=== PATIENT | male | born 1980 | race Two or more races ===

== ENCOUNTER 2023-02-03 07:12 | Inpatient (IN) | payer MEDICAID ==
[~2023-02-03] VITALS: Ht 182.9 cm; Wt 131.1 kg
[2023-02-03 07:15] VITALS: BP 96/60
--- NOTE | 2023-02-03 07:15 | NUR ---
TO BED VIA W/C
[2023-02-03] MEDS ORDERED: NACL 0.9% 2,000 ML IV SCH (07:25)
[2023-02-03] MEDS ORDERED: ONDANSETRON 4 MG/2 ML VIAL IVP ONE (07:25)
[2023-02-03] MEDS ORDERED: fentaNYL citrate 0.05 MG/ML VIAL IVP ONE (07:25)
--- NOTE | 2023-02-03 07:45 | NUR ---
42/M BIB self from home c/o RLQ x 3 days. Patient A&Ox4, ambulatory, reports acute onset RLQ pain 3 days ago; reports 10, stretching/constant, non-radiating pain. With nausea, vomiting >10 episodes yesterday. Worsens after meals. Denies fever, chills, diarrhea, constipation, chest pain, urinary symptoms. RLQ tenderness to palp. night monitor in place. Bed locked in lowest position, side rails x 1. PMH/Sx/Meds: cholecystectomy NKDA
--- NOTE | 2023-02-03 07:50 | NUR ---
Blood sample collected, handed to CPT at ER bedside
--- NOTE | 2023-02-03 08:06 | NUR ---
Patient transported to CT via W/C.
--- NOTE | 2023-02-03 08:18 | NUR ---
Pt returned from CT via W/C; placed back onto residential monitor. IVF continued. Bed locked in lowest position, side rails x 1.
--- NOTE | 2023-02-03 08:31 | NUR ---
Patient unable to void at this time. Pain 7/10. whizzer operator remains in place. HR 116; SpO2 96% R/A; RR 28.
[2023-02-03 08:36] LABS: BASOPHILS % (AUTO) 0.1 % (0.0-2.0); HEMATOCRIT 44.5 % (36-52); HEMOGLOBIN 14.8 g/dL (12.0-18.0); LYMPHOCYTES # (AUTO) 1.9 K/uL (2.0-11.5); LYMPHOCYTES % (AUTO) 10.7 % (20.5-51.1); MEAN CORPUSCULAR HEMOGLOBIN 27 pg (27-31); MEAN CORPUSCULAR HGB CONC 33 g/dL (33-37); MONOCYTES # (AUTO) 1.1 K/uL (0.8-1.0); MONOCYTES % (AUTO) 6.5 % (1.7-9.3); NEUTROPHILS # (AUTO) 14.6 K/uL (1.8-7.7); NEUTROPHILS % (AUTO) 82.7 % (42.2-75.2); PLATELET COUNT (AUTO) 344 K/uL (140-450); RED BLOOD CELL COUNT(AUTO) 5.49 MIL/uL (4.20-6.10); RED CELL DISTRIBUTION WIDTH 15.2 % (11.6-13.7); WHITE BLOOD COUNT (AUTO) 17.7 K/uL (4.8-10.8)
[2023-02-03] MEDS ORDERED: PIPERACILLIN/TAZOBACTAM 4.5 GM in DEXTROSE 5% 100 ML IV ONE (08:40)
[2023-02-03] MEDS ORDERED: MORPHINE SULFATE 4 MG/ML SYR IVP ONE (08:40)
[2023-02-03] MEDS ORDERED: PIPERACILLIN/TAZOBACTAM 4.5 GM VIAL IV ONE (08:44)
[2023-02-03 09:06] LABS: ALBUMIN 3.5 g/dL (3.4-5.0); ANION GAP 11.8 (8-16); ASPARTATE AMINOTRANSFERASE 18 U/L (15-37); CARBON DIOXIDE 30.6 mmol/L (21-32); CHLORIDE 97 mmol/L (98-107); CREATININE 1.3 mg/dL (0.6-1.3); GFR ARICAN-AMERICAN 79 mL/min (>90); GLUCOSE 184 mg/dL (74-106); LIPASE 77 U/L (73-393); POTASSIUM 3.4 mmol/L (3.5-5.1); SODIUM SERUM 136 mmol/L (136-145); TOTAL BILIRUBIN 1.1 mg/dL (0.0-1.0); UREA NITROGEN, BLOOD 11 mg/dL (7-18)
--- NOTE | 2023-02-03 09:06 | NUR ---
Pt states minor relief to pain; 7/10 at this time. groundwater monitoring technician in place. HR 100 RR 27 SpO2 95% on room air. Bed locked in lowest position, side rails x 1.
--- NOTE | 2023-02-03 09:06 | NUR ---
SHANE benton walked to lab, handed to CPT. Log book completed.
--- NOTE | 2023-02-03 10:00 | NUR ---
Spoke with Betsy (sister); status update given regarding pending admission.
[2023-02-03] MEDS ORDERED: DOCUSATE SODIUM 100 MG GELCAP PO PRN (11:30)
[2023-02-03] MEDS ORDERED: ONDANSETRON 4 MG/2 ML VIAL IVP PRN (11:30)
[2023-02-03] MEDS ORDERED: MAG SULF 2000 MG/WATER PREMIX 50 ML IV PRN (11:30)
[2023-02-03] MEDS ORDERED: MORPHINE SULFATE 2 MG/ML SYR IVP PRN (11:30)
[2023-02-03] MEDS ORDERED: ACETAMINOPHEN 325 MG TAB PO PRN (11:30)
[2023-02-03] MEDS ORDERED: POTASSIUM CHLORIDE 10 MEQ TABER PO PRN (11:30)
[2023-02-03] MEDS ORDERED: ZOLPIDEM 10 MG TAB PO PRN (11:30)
[2023-02-03] MEDS ORDERED: LORazepam 2 MG/ML VIAL IVP PRN (11:30)
[2023-02-03] MEDS: PIPERACILLIN/TAZOBACTAM 3.375 GM in DEXTROSE 5% 50 ML IV SCH ×3 (12:00→23:45)
[2023-02-03] MEDS ORDERED: KCL 20 MEQ IN 100 mL PREMIX 100 ML IV SCH (12:00)
[2023-02-03 12:22] LABS: APPEARANCE,URINE CLEAR (CLEAR); BILIRUBIN,URINE NEGATIVE (NEGATIVE); BLOOD, URINE NEGATIVE (NEGATIVE); COLOR,URINE YELLOW (YELLOW); LEUKOCYTE ESTERASE ,URINE NEGATIVE (NEGATIVE); NITRITE, URINE NEGATIVE (NEGATIVE); UGLUCOSE NEGATIVE (NEGATIVE)
[2023-02-03 12:28] LABS: RBC,URINE 0-5 /HPF (0-5)
[2023-02-03] MEDS: DEXT 5% /NACL 0.9% 1,000 ML IV SCH ×2 (12:30→20:35)
[2023-02-03 12:34] LABS: CANNABINOID, URINE POSITIVE ng/mL (NEG <=50)
[2023-02-03 12:35] LABS: BARBITURATE, URINE NEGATIVE ng/ml (NEG <=200); BENZODIAZEPINE, URINE NEGATIVE ng/mL (NEG <=200); COCAINE, URINE NEGATIVE ng/mL (NEG <=300); OPIATE, URINE POSITIVE ng/mL (NEG <=2000); PHENCYCLIDINE SCREEN,URINE NEGATIVE ng/mL (NEG <=25)
--- NOTE | 2023-02-03 12:42 | NUR ---
Note aileen in ED - 02/03/23 at [address] Mccabe, to order PT/INR, aPTT and echocardiogram (reason: hx meth abuse).
--- NOTE | 2023-02-03 12:43 | NUR ---
Per Dr. Mccabe, to order PT/PTT and echocardiogram (reason: hx meth abuse).
--- NOTE | 2023-02-03 12:54 | NUR ---
Patient resting in high-fowlers position with cardiac specialist in place. Pain 6/10 with nausea. Advised patient PRN orders too close from previous dose; pt verbalized understanding. All needs met.
[2023-02-03 13:43] LABS: PROTHROMBIN TIME 10.9 secs (10.8-13.4)
--- NOTE | 2023-02-03 14:14 | NUR ---
Spoke with FINISHER WALLBOARD AND PLASTERBOARD Catherine who states will seed cone picker at 2:30PM.
--- NOTE | 2023-02-03 14:15 | NUR ---
Patient reports 5/10 RLQ pain requesting medication. silk snapper in place. PRN pain medication to be given. Bed locked in lowest position, side rails x 1.
--- NOTE | 2023-02-03 14:18 | NUR ---
pump house technician at bedside.
[2023-02-03] MEDS ORDERED: BUPIVACAINE-MPF/EPI 0.25% 30 ML VIAL INJ ONE (14:28)
--- NOTE | 2023-02-03 14:48 | NUR ---
Patient states + relief to pain; 3/10 at this time.
[2023-02-03] MEDS ORDERED: PROPOFOL 200 MG/20 ML VIAL IV ONE ×3 (15:00→18:21)
[2023-02-03] MEDS ORDERED: SUGAMMADEX SODIUM 200 MG/2 ML VIAL IV ONE ×2 (15:00→16:44)
[2023-02-03] MEDS ORDERED: ONDANSETRON 4 MG/2 ML VIAL ONE ×2 (15:00→16:47)
[2023-02-03] MEDS ORDERED: ROCURONIUM 50 MG/5 ML VIAL IV ONE ×4 (15:00→17:37)
[2023-02-03] MEDS ORDERED: SUCCINYLCHOLINE CHLORIDE 200 MG/10 ML VIAL IVP ONE (15:00)
[2023-02-03] MEDS ORDERED: ETOMIDATE 20 MG/10 ML VIAL IVP ONE ×2 (15:00→16:16)
[2023-02-03] MEDS ORDERED: SEVOFLURANE 250 ML BTL INH ONE (15:00)
[2023-02-03] MEDS ORDERED: fentaNYL citrate 0.05 MG/ML - 50mL vial IV ONE (15:00)
--- NOTE | 2023-02-03 15:08 | NUR ---
Dr. Mccabe reevaluating patient at bedside; verbal order received for STAT Cardiology Clearance. Reverified verbal order with .
--- NOTE | 2023-02-03 15:10 | NUR ---
Dr. Hope notified regarding cardiology clearance. Dr. Hope states given ~3:00PM procedure time and states will not be able to see pt before surgery; requesting echocardiogram to be uploaded to be viewed/cleared remotely. Charge nurse notified to contact echo.
--- NOTE | 2023-02-03 15:14 | NUR ---
Charge nurse to call lead technician to upload echocardiogram for Dr. Hope per request for cardiology clearance. Dr. Mccabe speaking with Dr. Hope via telephone at this time.
--- NOTE | 2023-02-03 15:21 | NUR ---
OR team at bedside for transport. Off floor [id number].
--- NOTE | 2023-02-03 15:21 | NUR ---
Patient will be admitted to care of Dr. Finley. Admited to M/S. Will go to OR. Room pending. Belongings list completed. Report to THOMAS Parikh.
[2023-02-03] MEDS ORDERED: fentaNYL citrate 0.05 MG/ML VIAL ONE ×2 (16:04→17:11)
[2023-02-03] MEDS ORDERED: KETOROLAC 30 MG/ML VIAL ONE (16:47)
[2023-02-03] MEDS ORDERED: HYDROmorphone 1 MG/ML AMP IVP PRN ×2 (18:25→18:30)
[2023-02-03] MEDS ORDERED: hydrALAZINE 20 MG/ML VIAL IVP PRN (18:29)
[2023-02-03] MEDS ORDERED: LABETALOL 20 MG/4 ML VIAL IVP PRN (18:29)
[2023-02-03] MEDS ORDERED: METOCLOPRAMIDE 10 MG/2 ML INJ VIAL IVP PRN (18:29)
[2023-02-03] MEDS ORDERED: LACTATED RINGERS 1,000 ML IV SCH (18:30)
[2023-02-04] VITALS: BP 115/68
[2023-02-04] MEDS: MORPHINE SULFATE 4 MG/ML SYR IV PRN (03:53)
[2023-02-04 04:00] VITALS: BP 121/65
[2023-02-04] MEDS: DEXT 5% /NACL 0.9% 1,000 ML IV SCH ×3 (04:15→21:29)
[2023-02-04] MEDS: PIPERACILLIN/TAZOBACTAM 3.375 GM in DEXTROSE 5% 50 ML IV SCH ×4 (05:34→23:46)
[2023-02-04 07:20] LABS: BASOPHILS % (AUTO) 0.1 % (0.0-2.0); HEMATOCRIT 40.1 % (36-52); HEMOGLOBIN 13.6 g/dL (12.0-18.0); LYMPHOCYTES # (AUTO) 1.1 K/uL (2.0-11.5); LYMPHOCYTES % (AUTO) 6.1 % (20.5-51.1); MEAN CORPUSCULAR HEMOGLOBIN 27 pg (27-31); MEAN CORPUSCULAR HGB CONC 34 g/dL (33-37); MEAN CORPUSCULAR VOLUME 80.2 fL (80-94); MONOCYTES # (AUTO) 0.7 K/uL (0.8-1.0); MONOCYTES % (AUTO) 4.1 % (1.7-9.3); NEUTROPHILS # (AUTO) 16.2 K/uL (1.8-7.7); NEUTROPHILS % (AUTO) 89.7 % (42.2-75.2); PLATELET COUNT (AUTO) 272 K/uL (140-450); RED BLOOD CELL COUNT(AUTO) 4.99 MIL/uL (4.20-6.10); WHITE BLOOD COUNT (AUTO) 18.1 K/uL (4.8-10.8)
[2023-02-04 07:29] LABS: ANION GAP 9.7 (8-16); CARBON DIOXIDE 28.3 mmol/L (21-32); CREATININE 1.2 mg/dL (0.6-1.3)
[2023-02-04 08:00] VITALS: BP 124/68
[2023-02-04] MEDS: ENOXAPARIN 40 MG/0.4 ML SYR SUBQ SCH (08:43)
--- NOTE | 2023-02-04 09:32 | NUR ---
PATIENT HAS BEEN SCREENED AND CATEGORIZED HIGH NUTRITION RISK. PATIENT WILL BE SEEN WITHIN 1-2 DAYS OF ADMISSION. DAY [address] Addendum: 02/04/23 at [address] PATIENT WEIGHT WAS INCORRECT. RN UPDATED PATIENT WEIGHT AND PT IS NO LONGER UNDERWEIGHT. PATIENT WITH NO GI SYMPTOMS AT THIS TIME. PATIENT HAS BEEN RE-SCREENED AND CATEGORIZED LOW NUTRITION RISK. PATIENT WILL BE SEEN WITHIN 7 DAYS OF ADMISSION. 02/10/[address]
[2023-02-04 12:00] VITALS: BP 110/78
[2023-02-04 16:00] VITALS: BP 128/77
[2023-02-04] MEDS: ONDANSETRON 4 MG/2 ML VIAL IV PRN (17:03)
[2023-02-04 20:00] VITALS: BP 122/84
[2023-02-04] MEDS: MORPHINE SULFATE 2 MG/ML SYR IVP PRN (23:52)
[2023-02-05] VITALS: BP 115/79
[2023-02-05 04:00] VITALS: BP 124/79
[2023-02-05] MEDS: PIPERACILLIN/TAZOBACTAM 3.375 GM in DEXTROSE 5% 50 ML IV SCH ×3 (05:59→17:12)
[2023-02-05] MEDS: DEXT 5% /NACL 0.9% 1,000 ML IV SCH ×2 (05:59→13:35)
[2023-02-05 07:13] LABS: BASOPHILS % (AUTO) 0.2 % (0.0-2.0); HEMOGLOBIN 12.9 g/dL (12.0-18.0); MEAN CORPUSCULAR HEMOGLOBIN 27 pg (27-31); MEAN CORPUSCULAR HGB CONC 34 g/dL (33-37); MEAN CORPUSCULAR VOLUME 80.6 fL (80-94); MONOCYTES # (AUTO) 0.8 K/uL (0.8-1.0); MONOCYTES % (AUTO) 4.2 % (1.7-9.3); NEUTROPHILS # (AUTO) 16.6 K/uL (1.8-7.7); PLATELET COUNT (AUTO) 275 K/uL (140-450); RED BLOOD CELL COUNT(AUTO) 4.72 MIL/uL (4.20-6.10); RED CELL DISTRIBUTION WIDTH 14.9 % (11.6-13.7); WHITE BLOOD COUNT (AUTO) 18.4 K/uL (4.8-10.8)
--- NOTE | 2023-02-05 07:22 | NUR ---
RECEIVED ENDORSEMENT FROM CRISIS WORKER NURSE FOR CONTINUITY OF CARE. PT IS ASLEEP AWAKEN BY NAME, VS STABLE. CALL ROLDAN WITHIN REACH. WILL CONTINUE TO MONITOR.
[2023-02-05 07:30] LABS: ANION GAP 10.2 (8-16); CARBON DIOXIDE 29.5 mmol/L (21-32); POTASSIUM 3.7 mmol/L (3.5-5.1)
[2023-02-05 07:49] LABS: LYMPHOCYTES % (AUTO) 5.4 % (20.5-51.1); NEUTROPHILS % (AUTO) 90.2 % (42.2-75.2)
[2023-02-05 08:00] VITALS: BP 114/87
[2023-02-05] MEDS: ONDANSETRON 4 MG/2 ML VIAL IV PRN ×3 (08:38→18:24)
[2023-02-05] MEDS: ENOXAPARIN 40 MG/0.4 ML SYR SUBQ SCH (08:41)
[2023-02-05] MEDS: MORPHINE SULFATE 2 MG/ML SYR IVP PRN ×3 (08:41→18:24)
[2023-02-05] MEDS ORDERED: POTASSIUM CHL 20MEQ/D5-NS 1,000 ML IV SCH (09:40)
[2023-02-05] MEDS: POTASSIUM CHL 20MEQ/D5-NS 1,000 ML IV SCH ×2 (11:10→20:50)
--- NOTE | 2023-02-05 14:14 | NUR ---
PT GIVEN PAIN MED AND THE NAUSEA MED ORDERED FOR NAUSEA AND PAIN. MARTI IS IN PLACE WITH YELLOW DRAINAGE [id number]
[2023-02-05 16:00] VITALS: BP 123/73
--- NOTE | 2023-02-05 19:20 | NUR ---
RECEIVED REPORT FROM DAY SHIFT NURSE AGATHA FOR CONTINUITY OF CARE. PATIENT IS ON RA; BREATHING IS NORMAL WITH SYMMETRICAL RISE AND FALL OF CHEST. IV IS A 18G RAC AND AN 18G LFA RUNNING D5 NS KCL 20MEQ AT 100. PATIENT IS LYING IN SEMI-FOWLERS POSITION, SLEEPING. BED IS IN LOWEST POSITION, WHEELS LOCKED, CALL LIGHT IN PLACE. WILL CONTINUE TO OBSERVE PATIENT.
--- NOTE | 2023-02-05 19:26 | NUR ---
WAS INFORMED BY DAY SHIFT NURSE AGATHA THAT DR. PHILLIP D/C D5 NS AT 120 AND REPLACED IT WITH D5 NS KCL 20MEQ AT 100. INFORMED DAY SHIFT NURSE THAT D5 NS WAS STILL SHOWING IN EMAR. WENT INTO ORDERS AND D/C THE D5 NS AT [address] PHILLIP PER DAY SHIFT NURSE.
--- NOTE | 2023-02-05 19:50 | NUR ---
WAS INFORMED BY DEJUAN W[place] THAT DR. ARGUETA CALLED. STATED THAT CT SHOWED A SMALL BOWEL OBSTRUCTION WAS PRESENT ON PATIENT'S CT. ORDERS WERE TO START PATIENT ON NPO STATUS IMMEDIATELY AND NOTIFY DR. PHILLIP OF FINDINGS. MESSAGED DR. PHILLIP OF FINDINGS AND ORDER TO PLACE PATIENT ON NPO. D/C FULL LIQUID DIET AND PUT NPO ORDER IN. PATIENT IS NOW NPO STATUS.
[2023-02-05 20:00] VITALS: BP 147/92
--- NOTE | 2023-02-05 21:00 | NUR ---
DR. PHILLIP MESSAGED ASKING WHO ORDERED CT SCAN. INFORMED HIM THAT DR. ARGUETA ORDERED CT SCAN. DR. PHILLIP REPLIED THAT PATIENT WAS POST OP ILEUS. ASKED DR. PHILLIP IF I SHOULD LEAVE THE PATIENT NPO OR CHANGE BACK TO FULL LIQUID. DR. PHILLIP CALLED AND ASKED WHY CT WAS ORDERED. INFORMED HIM THAT I WASN'T SURE THE REASONING BEHIND THE CT SCAN BECAUSE IT WAS DONE DURING THE DAY AND HANDLED BY THE DAY SHIFT NURSE. DR. PHILLIP ASKED IF THE PATIENT HAD BEEN VOMITING. INFORMED DR. PHILLIP THAT THE PATIENT WAS CURRENTLY SLEEPING BUT I WAS TOLD DURING THE DAY HE WAS VOMITING. DR. PHILLIP SAID TO LEAVE THE PATIENT NPO AND INSERT AN NG TUBE IF PATIENT IS VOMITING. I THANKED DR. PHILLIP, AND WITH THE ASSISTANCE OF CHARGE NURSE SALOME, PUT IN AN ADDITIONAL ORDER FOR NG TUBE IF PATIENT IS VOMITING. PATIENT IS CURRENTLY SLEEPING WILL CONTINUE TO OBSERVE PATIENT.
[2023-02-06] MEDS: PIPERACILLIN/TAZOBACTAM 3.375 GM in DEXTROSE 5% 50 ML IV SCH ×5 (00:36→23:43)
--- NOTE | 2023-02-06 01:00 | NUR ---
PATIENT HAS WOKEN UP AND HAD TWO BOWEL MOVEMENTS. STOOL WAS BROWN LIQUID (UNFORMED). FIRST TIME PATIENT NEEDED ASSISTANCE GETTING OUT OF BED AND TO BATHROOM. SECOND TIME PATIENT DID IT WITHOUT CALLING FOR ASSISTANCE. INFORMED PATIENT THAT IT WAS GOOD THAT HE WAS ABLE TO DO IT INDEPENDENTLY, BUT TO PLEASE CALL FOR ASSISTANCE SO SOMEONE CAN BE PRESENT IN THE EVENT HE NEEDS HELP PATIENT SAID OKAY AND WENT BACK TO SLEEP. ADMINISTERED 0000 IVPB ANTIBIOTIC TO PATIENT. PATIENT IS SLEEPING. WILL CONTINUE TO OBSERVE PATIENT.
[2023-02-06 04:00] VITALS: BP 138/81
[2023-02-06] MEDS: POTASSIUM CHL 20MEQ/D5-NS 1,000 ML IV SCH ×2 (05:07→16:59)
--- NOTE | 2023-02-06 05:56 | NUR ---
PATIENT GOT UP AND USED THE BATHROOM FOR A THIRD TIME. ASSISTED PATIENT IN AMBULATING. PATIENT HAD BM AND VOIDED. PATIENT ASKED IF HE COULD HAVE SOMETHING FOR HIS ABDOMINAL PAIN. CHECKED PATIENT'S VITALS AND CHART. MORPHINE 2MG WAS APPROPRIATE TO ADMINISTER. WENT AND PULLED MEDICATION FOR PATIENT. WENT BACK INTO ROOM AND PATIENT WAS SLEEPING. LIGHTLY WOKE PATIENT UP AND ASKED IF HE STILL NEEDED HIS PAIN MEDICATION. PATIENT STATED NO AND HE WOULD LIKE TO GO WITHOUT IT RIGHT NOW; AND THEN WENT BACK TO SLEEP. I LEFT THE ROOM AND RETURNED THE MORPHINE. PATIENT IS CURRENTLY SLEEPING IN SEMI-FOWLERS POSITION. EMPTIED MARTI DRAIN, OBTAINED 15ML YELLOW DRAINAGE. WILL CONTINUE TO OBSERVE PATIENT.
[2023-02-06 06:51] LABS: ANION GAP 8.1 (8-16); CARBON DIOXIDE 29.6 mmol/L (21-32); CREATININE 0.9 mg/dL (0.6-1.3); POTASSIUM 3.7 mmol/L (3.5-5.1)
[2023-02-06 06:52] LABS: BASOPHILS % (AUTO) 0.1 % (0.0-2.0); EOSINOPHILS % (AUTO) 0.2 % (0.0-4.0); HEMATOCRIT 36.3 % (36-52); HEMOGLOBIN 12.1 g/dL (12.0-18.0); LYMPHOCYTES % (AUTO) 7.5 % (20.5-51.1); MEAN CORPUSCULAR HEMOGLOBIN 27 pg (27-31); MEAN CORPUSCULAR HGB CONC 33 g/dL (33-37); MEAN CORPUSCULAR VOLUME 80.9 fL (80-94); MONOCYTES # (AUTO) 0.9 K/uL (0.8-1.0); MONOCYTES % (AUTO) 6.9 % (1.7-9.3); NEUTROPHILS # (AUTO) 10.9 K/uL (1.8-7.7); NEUTROPHILS % (AUTO) 85.3 % (42.2-75.2); PLATELET COUNT (AUTO) 306 K/uL (140-450); RED BLOOD CELL COUNT(AUTO) 4.48 MIL/uL (4.20-6.10); RED CELL DISTRIBUTION WIDTH 14.8 % (11.6-13.7); WHITE BLOOD COUNT (AUTO) 12.8 K/uL (4.8-10.8)
--- NOTE | 2023-02-06 07:25 | NUR ---
ENDORSED TO DAY SHIFT NURSE SWAPNA FOR CONTINUITY OF CARE. PATIENT IS STABLE.
[2023-02-06 08:00] VITALS: BP 128/69
[2023-02-06] MEDS: ENOXAPARIN 40 MG/0.4 ML SYR SUBQ SCH (10:02)
[2023-02-06] MEDS: ONDANSETRON 4 MG/2 ML VIAL IV PRN (10:04)
--- NOTE | 2023-02-06 11:40 | NUR ---
S/P LAP APPENDECTOMY WITH DRAINAGE OF DIFFUSE 4 QUADRANT PERITONITIS AND PLACEMENT MARTI DRAIN, PERITONEAL LAVAGE ON 02/[address] PHILLIP.MULTIPLE ABDOMINAL SURGICAL WOUNDS CLOSED WITH VLAD NO S/S OF WOUND DEHISCENCE.LLQ ABD WITH MARTI DRAIN SITE DRY AND CLEAN WITH SUTURES SECURED, SMALL AMOUNT SEROUS DRAINAGE OBSERVED. POC DISCUSSED WITH PT. PT. VERBALIZES UNDERSTANDING. POC DISCUSSED WITH PRIMARY RN SEAN
[2023-02-06] MEDS ORDERED: ACET-5629 PO (13:26)
[2023-02-06 16:00] VITALS: BP 126/66
--- NOTE | 2023-02-06 16:13 | NUR ---
DC PLANNING:\ 42 YRS OLD MALE PATIENT WAS ADMITTED FROM HOME WITH A DX OF ACUTE APPENDICITIS. PATIENT HAS NO MEDICAL HX.CT ABD SHOWED MILDLY DISTENDED SMALL BOWEL LOOP WITH AIR-FLUID LEVELS. DR PHILLIP PERFORMED LAP APPY WITH MARTI DRAINAGE. ADMINISTERED IVF, IV ABX ZOSYN. DC PLAN TO GO HOME WHEN STABLE. CM TO FOLLOW. Addendum: 02/09/23 at 0927 by Reanna Sneed RN DC PLANNING: S/P LAP APPY WITH MARTI DRAIN DONE BY DR PHILLIP. FINDINGS PERFORATED GANGRENOUS APPENDICITIS W/DIFFUSE 4 QUADRANT PERITONITIS. ID SEEN PATIENT CONTINUE IV ABX ZOSYN AND IVF. ADVANCED DIET TO FULL LIQUID AND PAIN MEDS CHANGED TO PERCOCET PO TOLERATED WELL . C-DIFF PENDING. DC PLAN TO GO HOME WHEN STABLE. CM TO FOLLOW
--- NOTE | 2023-02-06 19:05 | NUR ---
ENDORSE PATIENT IN STABLE CONDITION TO PM SHIFT NURSE AFTER PATIENT'S DIET ADVANCE FROM NPO TO CLEAR LIQUID. PATIENT TOLERATE DIET W/ NO NAUSEA/VOMIT. PIV AT L. FOREARM INFUSING D5 NS 20MEQ KCL @100ML/HR
--- NOTE | 2023-02-06 19:30 | NUR ---
RECEIVED REPORT FROM DAY SHIFT NURSE SWAPNA FOR CONTINUITY OF CARE. PATIENT IS ON RA; BREATHING IS NORMAL WITH SYMMETRICAL RISE AND FALL OF CHEST. IV IS AN 18G LFA RUNNING D5 NS KCL 20MEQ AT 100. PATIENT IS LYING IN SEMI-FOWLERS POSITION, SLEEPING. BED IS IN LOWEST POSITION, WHEELS LOCKED, CALL LIGHT IN PLACE. WILL CONTINUE TO OBSERVE PATIENT.
[2023-02-06 20:00] VITALS: BP 126/63
--- NOTE | 2023-02-07 01:24 | NUR ---
PATIENT WOKE UP AND USED BATHROOM. PATIENT AMBULATED TO BATHROOM WITH THE ASSISTANCE OF DEJUAN BLACK. PATIENT HAD A BM THAT WAS LIQUID AND BROWN IN COLOR. PATIENT WAS THEN ASSISTED BACK TO HIS BED. DEJUAN BLACK ALSO EMPTIED PATIENT'S MARTI DRAIN PER PATIENT'S REQUEST. I MEASURED THE DRAINAGE; DRAINAGE WAS 30 ML HA IN COLOR. PATIENT THEN REQUESTED SLEEPING PILL TO HELP HIM SLEEP. CHECKED PATIENT'S VITALS AND CHART, AMBIEN WAS APPROPRIATE TO ADMINISTER. ADMINISTERED AMBIEN TO PATIENT. PATIENT TOLERATED WELL WITHOUT ANY ISSUES WITH SWALLOWING. WILL CONTINUE TO OBSERVE PATIENT.
[2023-02-07] MEDS: POTASSIUM CHL 20MEQ/D5-NS 1,000 ML IV SCH ×3 (02:50→21:56)
[2023-02-07] MEDS: PIPERACILLIN/TAZOBACTAM 3.375 GM in DEXTROSE 5% 50 ML IV SCH ×4 (05:43→23:24)
--- NOTE | 2023-02-07 06:00 | NUR ---
PATIENT HAD THREE BM THROUGHOUT THE NIGHT. PATIENT IS BREATHING NORMALLY WITH SYMMETRICAL RISE AND FALL OF CHEST. WILL CONTINUE TO OBSERVE PATIENT.
[2023-02-07 06:39] LABS: BASOPHILS % (AUTO) 0.1 % (0.0-2.0); EOSINOPHILS # (AUTO) 0.1 K/uL (0-0.4); EOSINOPHILS % (AUTO) 0.7 % (0.0-4.0); HEMATOCRIT 34.9 % (36-52); HEMOGLOBIN 11.6 g/dL (12.0-18.0); LYMPHOCYTES # (AUTO) 0.8 K/uL (2.0-11.5); LYMPHOCYTES % (AUTO) 8.1 % (20.5-51.1); MEAN CORPUSCULAR HEMOGLOBIN 27 pg (27-31); MEAN CORPUSCULAR HGB CONC 33 g/dL (33-37); MEAN CORPUSCULAR VOLUME 81.4 fL (80-94); MONOCYTES # (AUTO) 1.2 K/uL (0.8-1.0); MONOCYTES % (AUTO) 11.9 % (1.7-9.3); NEUTROPHILS # (AUTO) 7.8 K/uL (1.8-7.7); NEUTROPHILS % (AUTO) 79.2 % (42.2-75.2); PLATELET COUNT (AUTO) 316 K/uL (140-450); RED BLOOD CELL COUNT(AUTO) 4.29 MIL/uL (4.20-6.10); RED CELL DISTRIBUTION WIDTH 15.1 % (11.6-13.7); WHITE BLOOD COUNT (AUTO) 9.9 K/uL (4.8-10.8)
[2023-02-07 06:45] LABS: CARBON DIOXIDE 27.5 mmol/L (21-32); POTASSIUM 3.5 mmol/L (3.5-5.1)
--- NOTE | 2023-02-07 07:07 | NUR ---
receive the patient from the maintenance mechanic 2nd shift neelima Banda in rm [address] with admitting diagnosis of acute appendectomy . aox4 will continue to monitor
--- NOTE | 2023-02-07 07:40 | NUR ---
ENDORSED TO DAY SHIFT NURSE SHAD FOR CONTINUITY OF CARE. PATIENT IS STABLE.
[2023-02-07 08:00] VITALS: BP 130/74
[2023-02-07] MEDS: ENOXAPARIN 40 MG/0.4 ML SYR SUBQ SCH (09:40)
[2023-02-07 16:00] VITALS: BP 142/84
--- NOTE | 2023-02-07 16:18 | NUR ---
oh made rounds . noted and carried out . order for antibiotics , DVT prophylaxis and encourage ambulation
--- NOTE | 2023-02-07 17:22 | NUR ---
P.T. NOTES D/C FROM P.T. AFTER TX, PATIENT MAY BENEFIT W/ AMBU W/ NURSE SUPERVISION.
--- NOTE | 2023-02-07 18:42 | NUR ---
will endorse to night clerk auditor rn for continuity of care
--- NOTE | 2023-02-07 18:43 | NUR ---
md lugo made rounds . made orders noted and carried out . made orfer for daily laboratory , lovenox , antibiotics and zofran for vomiting .
--- NOTE | 2023-02-07 19:10 | NUR ---
RECEIVED PT TO MORNING SHIFT NURSE. PT IS AOX4, AMBULATORY, ABLE TO VERBALIZE NEEDS AND ABLE TO FOLLOW COMMANDS. PT IS ON ROOM AIR AND ON FULL LIQUID DIET. PT HAS IV ON LEFT FOREARM GAUGE 20, RUNNING WITH D5NS WITH POTASSIUM CHLORIDE AT 100ML/HR. PT HAS 3 SURGICAL WOUND ON ABDOMINAL AND HAS MARTI DRAIN BELOW THE UMBILICUS. NO COMPLAIN OF PAIN AT THIS TIME. NO S/S OF RESPIRATORY DISTRESS NOTED. ALL SAFETY MEASURES IMPLEMENTED. BED WHEELS ON LOCK, BED IN LOW POSITION AND CALL LIGHT WITHIN REACH.
--- NOTE | 2023-02-07 21:56 | NUR ---
HANGED NEW D5NS WITH K CHLORIDE 20 MEQ AT 100ML/HR. PT DENIES PAIN. NO S/S OF RESPIRATORY DISTRESS NOTED. ALL SAFETY MEASURES IMPLEMENTED. BED IN LOW POSITION, BED WHEELS ON LOCK AND CALL LIGHT WITHIN REACH.
[2023-02-07] MEDS: MORPHINE SULFATE 4 MG/ML SYR IV PRN (23:23)
[2023-02-07] MEDS: ONDANSETRON 4 MG/2 ML VIAL IV PRN (23:23)
--- NOTE | 2023-02-07 23:23 | NUR ---
PRN PAIN MEDICATION WAS GIVEN TO PT AND ONDANSETRON DUE TO ABDOMINAL PAIN WITH PAIN SCALE OF 8/10. ALL SAFETY MEASURES IMPLEMENTED. BED IN LOW POSITION, BED WHEELS ON LOCK AND CALL LIGHT WITHIN REACH.
--- NOTE | 2023-02-07 23:24 | NUR ---
SCHEDULED AND PRESCRIBED MEDICATION WAS GIVEN TO PT PER MD ORDER. ALL SAFETY MEASURES IMPLEMENTED. BED IN LOW POSITION, BED WHEELS ON LOCK AND CALL LIGHT WITHIN REACH.
[2023-02-08] VITALS: BP 144/74
--- NOTE | 2023-02-08 02:00 | NUR ---
PT IS ON SLEEP. CHEST RISE AND FALL SYMMETRICALLY NOTED. RESPIRATION IS EVEN AND UNLABORED. ALL SAFETY MEASURES IMPLEMENTED. BED IN LOW POSITION, BED WHEELS ON LOCK AND CALL LIGHT WITHIN REACH.
[2023-02-08] MEDS: MORPHINE SULFATE 4 MG/ML SYR IV PRN ×4 (04:43→20:06)
[2023-02-08] MEDS: ONDANSETRON 4 MG/2 ML VIAL IV PRN ×4 (04:44→20:06)
[2023-02-08] MEDS: PIPERACILLIN/TAZOBACTAM 3.375 GM in DEXTROSE 5% 50 ML IV SCH ×4 (05:40→23:46)
[2023-02-08 07:03] LABS: ANION GAP 9.3 (8-16); BASOPHILS % (AUTO) 0.2 % (0.0-2.0); CREATININE 0.8 mg/dL (0.6-1.3); EOSINOPHILS # (AUTO) 0.2 K/uL (0-0.4); EOSINOPHILS % (AUTO) 1.6 % (0.0-4.0); HEMATOCRIT 33.8 % (36-52); HEMOGLOBIN 11.1 g/dL (12.0-18.0); LYMPHOCYTES # (AUTO) 1.6 K/uL (2.0-11.5); LYMPHOCYTES % (AUTO) 12.2 % (20.5-51.1); MEAN CORPUSCULAR HEMOGLOBIN 27 pg (27-31); MEAN CORPUSCULAR HGB CONC 33 g/dL (33-37); MEAN CORPUSCULAR VOLUME 81.6 fL (80-94); MONOCYTES # (AUTO) 1.4 K/uL (0.8-1.0); MONOCYTES % (AUTO) 11.2 % (1.7-9.3); NEUTROPHILS # (AUTO) 9.7 K/uL (1.8-7.7); NEUTROPHILS % (AUTO) 74.8 % (42.2-75.2); PLATELET COUNT (AUTO) 368 K/uL (140-450); POTASSIUM 3.3 mmol/L (3.5-5.1); RED BLOOD CELL COUNT(AUTO) 4.14 MIL/uL (4.20-6.10); RED CELL DISTRIBUTION WIDTH 15.2 % (11.6-13.7); WHITE BLOOD COUNT (AUTO) 12.9 K/uL (4.8-10.8)
--- NOTE | 2023-02-08 07:22 | NUR ---
PT IS STABLE. ENDORSED PT TO MORNING SHIFT NURSE FOR CONTINUITY OF CARE.
--- NOTE | 2023-02-08 07:23 | NUR ---
RECEIVED REPORT FROM SPRAY PAINTER HELPER NURSE FOR CONTINUITY OF CARE. PATIENT LYING DOWN IN BED, SLEEPING AROUSABLE BY VOICE. NO DISTRESS NOTED. PAIN WITHIN TOLERABLE AT THIS TIME. RIGHT MARTI DRAIN IN PLACE. IV SITE INTACT, PATENT, AND INFUSING IVF PER MD ORDERS. REVIEWED PLAN OF CARE WITH PATIENT. VERBALIZED UNDERSTANDING. SAFETY MEASURES IN PLACE, CALL LIGHT WITHIN REACH. WILL CONTINUE TO MONITOR.
[2023-02-08 08:00] VITALS: BP 135/70
[2023-02-08] MEDS: POTASSIUM CHL 20MEQ/D5-NS 1,000 ML IV SCH ×2 (08:55→18:51)
[2023-02-08] MEDS: ENOXAPARIN 40 MG/0.4 ML SYR SUBQ SCH (08:55)
--- NOTE | 2023-02-08 09:07 | NUR ---
SCHEDULED MEDICATIONS DUE GIVEN. COMPLAINS OF 9/10 ABDOMINAL PAIN AND NAUSEA, NO VOMITING. MORPHINE PRN AND ZOFRAN PRN GIVEN AT THIS TIME. WILL CONTINUE TO MONITOR.
--- NOTE | 2023-02-08 12:36 | NUR ---
SCHEDULED MEDICATIONS DUE GIVEN. WILL CONTINUE TO MONITOR.
--- NOTE | 2023-02-08 13:15 | NUR ---
SCHEDULED MEDICATIONS DUE GIVEN. WILL CONTINUE TO MONITOR.
[2023-02-08 16:00] VITALS: BP 125/67
--- NOTE | 2023-02-08 17:36 | NUR ---
SCHEDULED MEDICATIONS DUE GIVEN. WILL CONTINUE TO MONITOR.
--- NOTE | 2023-02-08 19:22 | NUR ---
GAVE REPORT TO SENIOR BIOINFORMATICS SCIENTIST NURSE FOR CONTINUITY OF CARE. PATIENT IN STABLE CONDITION.
--- NOTE | 2023-02-08 19:23 | NUR ---
RECEIVED PT TO MORNING SHIFT NURSE. PT IS AOX4, AMBULATORY, ABLE TO VERBALIZE NEEDS AND ABLE TO FOLLOW COMMANDS. PT IS ON ROOM AIR AND ON FULL LIQUID DIET. PT HAS IV ON LEFT FOREARM GAUGE 18, RUNNING WITH D5NS WITH POTASSIUM CHLORIDE AT 100ML/HR. PT HAS 3 SURGICAL WOUND ON ABDOMINAL AND HAS MARTI DRAIN BELOW THE UMBILICUS. PT COMPLAIN PAIN ON ABDOMEN. NO S/S OF RESPIRATORY DISTRESS NOTED. ALL SAFETY MEASURES IMPLEMENTED. BED WHEELS ON LOCK, BED IN LOW POSITION AND CALL LIGHT WITHIN REACH.
--- NOTE | 2023-02-08 20:06 | NUR ---
PT WAS GIVEN PRN PAIN MEDICATION DUE TO ABDOMINAL PAIN WITH PAIN SCALE OF 8/10. ALL SAFETY MEASURES IMPLEMENTED. BED WHEELS ON LOCK, BED IN LOW POSITION AND CALL LIGHT WITHIN REACH.
[2023-02-08] MEDS: oxyCODONE/APAP 5/325 MG 1 TAB TAB PO PRN (23:47)
--- NOTE | 2023-02-08 23:48 | NUR ---
SCHEDULED AND PRESCRIBED MEDICATION AND PERCOCET 5/325MG WAS ALSO GIVEN TO PT PER MD ORDER.
[2023-02-09] VITALS: BP 132/76
--- NOTE | 2023-02-09 00:40 | NUR ---
PERCOCET WAS GIVEN TO PT DUE TO ABDOMINAL PAIN WITH PAIN SCALE OF 6/10. ALL SAFETY MEASURES IMPLEMENTED. BED IN LOW POSITION, BED WHEELS ON LOCK AND CALL LIGHT WITHIN REACH.
--- NOTE | 2023-02-09 02:00 | NUR ---
PT IS SLEEPING. CHEST RISE AND FALL SYMMETRICALLY NOTED. RESPIRATION IS EVEN AND UNLABORED. ALL SAFETY MEASURES IMPLEMENTED. BED IN LOW POSITION, BED WHEELS ON LOCK AND CALL LIGHT WITHIN REACH.
[2023-02-09] MEDS: POTASSIUM CHL 20MEQ/D5-NS 1,000 ML IV SCH ×2 (04:26→15:57)
[2023-02-09] MEDS: PIPERACILLIN/TAZOBACTAM 3.375 GM in DEXTROSE 5% 50 ML IV SCH ×4 (05:11→23:11)
[2023-02-09] MEDS: oxyCODONE/APAP 5/325 MG 1 TAB TAB PO PRN ×2 (06:16→12:41)
--- NOTE | 2023-02-09 07:20 | NUR ---
PT IS STABLE. ENDORSED PT TO MORNING SHFT NURSE FOR CONTINUITY OF CARE.
--- NOTE | 2023-02-09 07:21 | NUR ---
RECEIVED PT FROM MANAGEMENT TRAINEE PROGRAM STORES NURSE FOR CONTINUITY OF CARE. PT IS SLEEPING, VISIBLE CHEST RISE AND FALL. RESPIRATIONS EVEN AND UNLABORED. SKIN WARM AND DRY. IV ON L FA 18G INFUSING @ 100CC/HR. CALL LIGHT WITHIN REACH. ALL SAFETY PRECAUTIONS IN PLACE.
[2023-02-09 08:00] VITALS: BP 119/71
--- NOTE | 2023-02-09 08:00 | NUR ---
Patient's Plan of Care was discussed and reviewed with TASSEL MAKING MACHINE OPERATOR: VINOD
[2023-02-09] MEDS: ENOXAPARIN 40 MG/0.4 ML SYR SUBQ SCH (09:38)
--- NOTE | 2023-02-09 13:53 | NUR ---
02/09/23 RD INITIAL ASSESSMENT COMPLETED PLEASE REFER TO NUTRITION ASSESSMENT UNDER CARE ACTIVITY FOR ESTIMATED NUTRITIONAL NEEDS. 1. CONTINUE FULL LIQUID DIET TOLERATED 2. RECOMMEND REGULAR DIET WHEN/IF MEDICALLY APPROPRIATE 3. RD TO FOLLOW-UP 7 DAYS, LOW RISK REVIEWED BY LEVI SHEIKH RD
[2023-02-09 16:00] VITALS: BP 141/82
--- NOTE | 2023-02-09 19:26 | NUR ---
ENDORSED PT TO BODY BUILDER NURSE FOR CONTINUITY OF CARE. PT IS STABLE.
--- NOTE | 2023-02-09 19:27 | NUR ---
RECEIVED REPORT FROM AM NURSE. PATIENT IN BED WELL RESTED/WATCHING TV. NO SOB NOTED. IVF INFUSING ORDERED. CALL LIGHT WITHIN REACH. NO COMPLAINTS OF PAIN AT THIS TIME. AMBULATORY. NEEDS ATTENDED AND MET.
--- NOTE | 2023-02-10 00:13 | NUR ---
PATIENT COMPLAINED OF SEVERE ABDOMINAL PAIN RADIATING TO THE BACK, MEDICATED.
[2023-02-10] MEDS: POTASSIUM CHL 20MEQ/D5-NS 1,000 ML IV SCH ×3 (00:50→10:30)
[2023-02-10 04:00] VITALS: BP 127/70
[2023-02-10] MEDS: MORPHINE SULFATE 4 MG/ML SYR IV PRN (04:07)
--- NOTE | 2023-02-10 04:07 | NUR ---
PATIENT COMPLAINED OF MODERATE BACK PAIN, MEDICATED ORDERED.
[2023-02-10] MEDS: PIPERACILLIN/TAZOBACTAM 3.375 GM in DEXTROSE 5% 50 ML IV SCH ×3 (05:51→18:47)
[2023-02-10 06:35] LABS: BASOPHILS % (AUTO) 0.4 % (0.0-2.0); EOSINOPHILS # (AUTO) 0.1 K/uL (0-0.4); EOSINOPHILS % (AUTO) 1.2 % (0.0-4.0); HEMATOCRIT 34.8 % (36-52); HEMOGLOBIN 11.5 g/dL (12.0-18.0); LYMPHOCYTES # (AUTO) 1.7 K/uL (2.0-11.5); LYMPHOCYTES % (AUTO) 13.2 % (20.5-51.1); MEAN CORPUSCULAR HEMOGLOBIN 27 pg (27-31); MEAN CORPUSCULAR HGB CONC 33 g/dL (33-37); MEAN CORPUSCULAR VOLUME 81.6 fL (80-94); MONOCYTES # (AUTO) 0.9 K/uL (0.8-1.0); MONOCYTES % (AUTO) 7.1 % (1.7-9.3); NEUTROPHILS # (AUTO) 9.8 K/uL (1.8-7.7); NEUTROPHILS % (AUTO) 78.1 % (42.2-75.2); PLATELET COUNT (AUTO) 417 K/uL (140-450); RED BLOOD CELL COUNT(AUTO) 4.27 MIL/uL (4.20-6.10); WHITE BLOOD COUNT (AUTO) 12.6 K/uL (4.8-10.8)
--- NOTE | 2023-02-10 07:28 | NUR ---
RECEIVED REPORT FROM AIR AND HYDRONIC BALANCING TECHNICIAN NURSE, MALINA, FOR CONTINUITY OF CARE. PT IN BED SLEEPING AT THIS TIME. RESPIRATINS ARE EVEN AND UNLABORED ON ROOM AIR. NO SIGNS OF DISTRESS NOTED. PT IS ALERT AND ORIENTED X4, ABLE TO VERBALIZE NEEDS, ABLE TO FOLLOW COMMANDS. PT IS ON SOFT DIET, ABD IS NONTENDER, NONDISTENDED WITH BOWEL SOUNDS PRESENT. PT IS 5 DAYS S/P LAP APPENDECTOMY. 3 SURGICAL SITES WITH DERMABOND OPEN TO AIR. PT HAS MARTI DRAIN IN PLACE, DRAINING CLEAR, YELLOW FLUID, 7CC NOTED. PT IS AMBULATORY, ABLE TO UTILIZED REST ROOM INDEPENDENTLY. PT HAS IV TO LFA 18G. CALL LIGHT WITHIN REACH. ALL SAFETY MEASURES IN PLACE.
[2023-02-10 08:00] VITALS: BP 120/66
--- NOTE | 2023-02-10 08:00 | NUR ---
Patient's Plan of Care was discussed and reviewed with TEST CONDUCTOR:
[2023-02-10] MEDS: ENOXAPARIN 40 MG/0.4 ML SYR SUBQ SCH (09:00)
[2023-02-10] MEDS: oxyCODONE/APAP 5/325 MG 1 TAB TAB PO PRN ×2 (09:03→18:34)
--- NOTE | 2023-02-10 09:03 | NUR ---
ADMINISTERED SCHEDULED MEDICATIONS. EDUCATED PT ON MEDS ADMINISTERED. PT VERBALIZED UNDERSTANDING. PT ALSO COMPLAINING OF PAIN, STATES PAIN IS 6/10 LOCALIZED TO HIS BACK. EDUCATED PT ON CHANGING POSITIONS AND AMBULATING TO HELP WITH PAIN. PT STATES "I JUST WANT MY DILAUDID". INFORMED PT THAT HE CAN RECEIVE PO PERCOCET. PT UPSET STATING HE WANTS DILAUDID. STATES HE IS GOING TO ASK MD TO INCREASE PAIN MEDS AND MAKE THEM MORE OFTEN. CHARGE NURSE MADE AWARE.
--- NOTE | 2023-02-10 10:31 | NUR ---
D5NS WITH KCL NOT ADMINISTERED, OTHER IV BAG WITH SAME COMPONENTS STILL INFUSING.
[2023-02-10] MEDS ORDERED: DOCU-299 PO (10:47)
[2023-02-10] MEDS ORDERED: IBUP-1842 PO (10:49)
[2023-02-10 11:13] VITALS: BP 120/66
--- NOTE | 2023-02-10 11:32 | NUR ---
PT HAS DISCHARGE ORDER IN PLACE. DR PHILLIP MADE AWARE.
--- NOTE | 2023-02-10 12:31 | NUR ---
PER DR PHILLIP, OK TO DISCHARGE PT WITH MARTI DRAIN IN PLACE, PT WILL FOLLOW UP WITH DR PHILLIP IN [address] PHILLIP ALSO REQUESTING PT NEEDS [address] DOYLE MADE AWARE.
--- NOTE | 2023-02-10 15:13 | NUR ---
DID ROUNDS ON PT. PT RESTING AT THIS TIME. RESPIRATIONS ARE EVEN AND UNLABORED. NO SIGNS OF DISTRESS NOTED.
[2023-02-10] MEDS ORDERED: METR-520 PO ×3 (16:49→18:53)
--- NOTE | 2023-02-10 17:26 | NUR ---
AWAITING DR DOYLE TO ORDER DISCHARGE ABX FOR PT.
--- NOTE | 2023-02-10 19:24 | NUR ---
WENT OVER DISCHARGE PAPERWORK WITH PT. ANSWERED ALL QUESTIONS. PT SIGNED ALL PAPERWORK. PT ASKED STAFF TO CALL HIS SISTER FOR A RIDE. CALLED PT SISTER, MANJINDER, SISTER STATED SHE CAN MEDICAL IMAGING TECH PT AT 1945. PT MADE AWARE. PROPERTY ANALYST NURSE MADE AWARE. ENDORSED PT TO PROPERTY ANALYST NURSE MALINA FOR CONTINUITY OF CARE. PT IS STABLE.
--- NOTE | 2023-02-10 19:41 | NUR ---
PATIENT IN BED RESTING WAITING FOR HIS SISTER TO PICK HIM UP. NO SOB NOTED. CALL LIGHT WITHIN REACH. NO COMPLAINTS OF PAIN.
--- NOTE | 2023-02-10 20:10 | NUR ---
PATIENT WAS DISCHARGED HOME IN STABLE CONDITION ACCOMPANIED BY HIS SISTER. REMINDED TO FOLLOW UP WITH DR PHILLIP IN A WEEK WITH UNDERSTANDING.
== END 2023-02-10 20:10 | disposition home or self-care (01) | DRG 710 ==
LOC: MED 07:12 → MTU 10:04
PROVIDERS: ADMIT General Practice; ATTEND General Practice
PROC: 0DNW4ZZ Release Peritoneum, Percutaneous Endoscopic Approach (ICD-10-PCS; 2023-02-03)
PROC: 0DTJ4ZZ Resection of Appendix, Percutaneous Endoscopic Approach (ICD-10-PCS; principal; 2023-02-03 14:30)
DX: A41.9 Sepsis, unspecified organism (principal); K35.32 Acute appendicitis with perforation, localized peritonitis, and gangrene, without abscess; E87.20 Acidosis, unspecified; K76.0 Fatty (change of) liver, not elsewhere classified; K56.7 Ileus, unspecified; K91.89 Other postprocedural complications and disorders of digestive system; Z20.822 Contact with and (suspected) exposure to COVID-19; F19.129 Other psychoactive substance abuse with intoxication, unspecified; Z90.49 Acquired absence of other specified parts of digestive tract
CPT/HCPCS: 36415; 80048; 80053; 80305; 81001; 81003; 82374; 82550; 83036; 83605; 83690; 83735; 84484; 85025; 85610; 85730; 87040; 87070; 87081; 88304; 96365; 96366; 96367; 96375; 97112; 97116; 97163-GP; 97530; 99291; J0330; J1170; J1650; J1885; J2270; J2405; J2543; J2704; J3010; J3475; J3480; J3490; J7060; J7120; Q9967